=== PATIENT | female | born 1940 | race Caucasian/White ===

== ENCOUNTER 2021-07-31 16:38 | Emergency (ER) | payer OTHER, SELFPAY ==
--- NOTE | ~2021-07-31 | CT_ITS ---
EXAMINATION: CT abdomen pelvis w con DATE: 07/31/2021 19:40 INDICATION: Nausea and vomiting for 3 weeks TECHNIQUE: Computed tomography (CT) of the abdomen and pelvis was performed with 100 cc Omnipaque 350 intravenous contrast. Automated exposure control and iterative reconstruction technique were employe d. Exam dose: 256.31 mGy-cm total exam DLP. COMPARISON: None. FINDINGS: The lung bases are clear. Normal heart size. No pericardial or pleural effusion. Small sliding hiatal hernia. There is a 10.5 mm hypoattenuating lesion of the upper posterior liver posterior to the inferior vena cava which may be a cyst or hemangioma. There is a huge up to 6.2 cm wide an 8 cm anteroposterior dimension hypoattenuating lesion of the low er aspect of the right hepatic lobe, with peripheral contrast enhancement. Additional satellite lesio ns measure up to 2 cm dimension are noted. The peripheral contrast-enhancement appears relatively con tinuous as opposed to puddling contrast enhancement expected with a giant hemangioma. Primary or meta static hepatic malignancy is favored. Consider hepatic MRI examination. No surface nodularity of liver is noted. Splenic size is normal. No pancreatic mass lesion, calcifica tion or ductal dilatation is detected. No bile duct dilatation. No gallbladder distention or gallbladder wall thickening is noted but there appear to be multiple sma ll stones at the dependent aspect of the gallbladder. There is some nonspecific thickening of the wall of the gastric antrum/pylorus. Normal morphology of the adrenal glands. 1.5 cm left renal cyst. No urinary tract calculus or hydroureteronephrosis. The urinary bladder is un remarkable. Status post hysterectomy. Diverticulosis of the colon; no CT evidence of diverticulitis. No bowel obstruction or intraperitonea l free air. There is atherosclerotic calcification but normal caliber of the abdominal aorta. No intraperitoneal or retroperitoneal or pelvic mass lesion or adenopathy or ascites. Moderate anterior wedge fracture deformities of L1 and L2. Grade 1 anterolisthesis at L4-5 due to degenerative change at the apophyseal joints. Old healed pelvic fracture deformities. IMPRESSION: Multiple hepatic masses; multifocal hepatocellular carcinoma and metastases are more lik lyn than giant hemangioma; consider hepatic MRI examination Cholelithiasis 1.5 cm left renal cyst Small sliding hiatal hernia Diverticulosis of the colon Reviewed, dictated and finalized at [facility]. Reviewed, dictated and finalized at [facility]. IMPRESSION: Multiple hepatic masses; multifocal hepatocellular carcinoma and m etastases are more likely than giant hemangioma; consider hepatic MRI examinati on Cholelithiasis 1.5 cm left renal cyst Small sliding hiatal hernia Diverticulosis of the colon
[2021-07-31 16:41] VITALS: BP 152/71; PULSE 91; RESP 16; TEMP 36.1; O2SAT 100
[2021-07-31 16:59] LABS: Basophils Percent Auto 0.1 % (0.2-1.2); Hematocrit 35.5 % (37.0-47.0); Hemoglobin 11.8 g/dL (12.0-15.0); Immature Granulocyte Absolute 0.04 K/mm3 (0.00-0.031); Immature Granulocyte Percent A 0.5 % (0-0.5); Lymphocytes Absolute Auto 1.09 K/mm3 (0.9-3.2); Lymphocytes Percent Auto 12.6 % (18.3-44.2); Mean Corpuscular HGB Conc 33.2 g/dl (32-36); Mean Corpuscular Hemoglobin 30.3 pg (26-34); Mean Platelet Volume 10.7 fl (7.4-10.4); Monocytes Absolute Auto 0.7 K/mm3 (0.1-0.6); Neutrophils Absolute Auto 6.8 K/mm3 (1.3-6.7); Neutrophils Percent Auto 78.8 % (45.5-73.1); Platelet Count Result 243 k/mm3 (150-375); Red Cell Distribution Width 12.1 % (11.5-14.5); White Blood Count 8.7 K/mm3 (4.5-10.0)
[2021-07-31 17:15] LABS: Alanine Aminotransferase 25 U/L (4-35); Albumin Level 4.1 g/dL (3.5-5.1); Alkaline Phosphatase 227 U/L (38-126); Anion Gap 10 mmol/L (8-16); Aspartate Amino Transferase 40 U/L (14-36); Bilirubin,Total 0.6 mg/dL (0.2-1.3); Blood Urea Nitrogen 11 mg/dL (7-17); Calcium 9.9 mg/dL (8.4-10.2); Carbon Dioxide 26 mmol/L (22-30); Chloride 93 mmol/L (98-107); Estimated CRCL calculation 40 ml/min; Estimated Glomerular Filt Rate > 60; Glucose 103 mg/dL (65-110); Lipase 163 U/L (23-300); Potassium 4.2 mmol/L (3.4-5.0); Sodium 129 mmol/L (137-145)
--- NOTE | 2021-07-31 19:17 | ED.GENADULT ---
HPI - General Adult General Chief complaint: Nausea/Vomiting/Diarrhea Stated complaint: Vomiting x3 weeks Time Seen by Provider: 07/31/21 18:44 Source: patient Mode of arrival: ambulatory Limitations: no limitations History of Present Illness HPI narrative: Patient presents for evaluation of nausea and vomiting for the last 2 to 3 weeks. She states that episodes of vomiting occur immediately after eating. She indicates her symptoms started approximately 1 week after receiving her influenza vaccination and COVID booster. No recent travel, new foods, recent antibiotic use. She denies any abdominal pain whatsoever. She has experienced chills and chills without objective fever. Last bowel movement was today, solid in consistency, without the presence of blood or mucus. She has had decreased volume with her bowel movements since decreasing her oral intake. She reports chronic nocturia, unchanged. Over the last few days she has only been drinking water, as nothing else will stay down. Surgical history positive for hysterectomy. No other abdominal surgeries historically. Related Data Allergies Allergy/AdvReac Type Severity Reaction Status Date / Time Sulfa (Sulfonamide Allergy Mild Rash Verified 07/31/21 19:18 Antibiotics) Review of Systems Review of Systems: CONSTITUTIONAL: Denies fever, chills, or sweats. EYES: Denies visual changes, redness, or discharge. ENT: Denies rhinorrhea, congestion, sore throat, or otalgia. CARDIOVASCULAR: Denies chest pain, palpitations, or edema. RESPIRATORY: Denies cough or dyspnea. GASTROINTESTINAL: Reports nausea and vomiting. Denies abdominal pain. GENITOURINARY: Denies dysuria or hematuria. SKIN: Denies rash or itching. MUSCULOSKELETAL: Denies back pain, joint pain, or myalgia. NEUROLOGIC: Denies headache, numbness, dizziness, or weakness. PSYCHIATRIC: Denies anxiety or depression. [facility] Past Medical History Medical History (Updated 07/31/21 @ 21:59 by GAEL Vuong, LIV) Depression Hyperlipidemia Hypertension Vitamin D deficiency Surgical History Surgical History History of total hysterectomy Family History Family History Father Hypertension Social History Social History Substance use: never Living arrangements: with family Gender identity (if verbalized by the patient): Female Sexual Orientation (if Verbalized by the Patient): Straight or Heterosexual Spiritual care concerns: No Exam Narrative: GENERAL: Well-appearing, well-nourished, and in no acute distress. HEAD: Normocephalic, atraumatic. EYES: PERRLA and EOMI. ENT: Nares clear, no rhinorrhea or epistaxis. Mucous membranes moist. Oropharynx without tonsillar hypertrophy exudate or other lesions. Bilateral TMs pearly mukherjee nonbulging NECK: Supple. No adenopathy or masses. No carotid bruits or JVD CHEST: Clear to auscultation. No respiratory distress. No wheezes rales or rhonchi HEART: Regular rate and rhythm. No murmur heard. Normal peripheral pulses. ABDOMEN: Soft, nontender, nondistended, normal active bowel sounds. EXTREMITIES: Normal range of motion. No edema. SKIN: Warm, dry, no rash. NEURO: No focal deficits. Alert and oriented x3. PSYCH: Normal mood and affect. Course Course Emergency Course: This is an 81-year-old female who presented with complaints of nausea and vomiting. CT abdomen pelvis was performed and showed multiple hepatic masses; multifocal hepatocellular carcinoma and metastases are more likely than giant hemangioma; Cholelithiasis, 1.5 cm left renal cyst, small sliding hiatal hernia, diverticulosis of the colon. Reviewed these findings with patient. She states she is a DNR. She states she does not want any further intervention. Her nausea is controlled. I contacted her primary care provider,
[2021-07-31] MEDS: SODIUM CHLORIDE 0.9% IV 1,000 ML 999 ML IV CONT (19:19)
[2021-07-31] MEDS: ONDANSETRON INJ 4 MG/2 ML VIAL IV PUSH (19:21)
[2021-07-31 19:22] VITALS: BP 148/72; PULSE 76; RESP 16; O2SAT 97
[2021-07-31] MEDS: FAMOTIDINE 20 MG/2 ML VIAL IV PUSH (19:22)
[2021-07-31 20:14] LABS: Add Urine Microscopic? YES; Appearance Urine Cloudy (Clear); Bacteria Urine Trace /hpf; Bilirubin Urine Negative (Negative); Blood Urine 1+ (Negative); Color Urine Amber (Yellow); Glucose Urine UA Negative (Negative); Ketones Urine 1+ mg/dL (Negative); Leukocyte Esterase Ur 2+ LEU/UL (Negative); Mucus Urine Heavy /lpf; Nitrate Urine Positive (Negative); Protein Urine 2+ mg/dL (Negative); Specific Grav Ur 1.023 (1.001-1.035); Squamous Epithelial Cell Urine Moderate /hpf (Few); Urobilinogen Urine Negative mg/dL (<2.0); WBC Clumps Urine Present /HPF; WBC Urine >75 /hpf
[2021-07-31 21:08] LABS: Troponin I < 0.012 ng/mL (0.000-0.034)
[2021-07-31 22:55] VITALS: BP 170/77; PULSE 87; RESP 16; O2SAT 99
== END 2021-07-31 22:31 | disposition home or self-care (01) ==
PROVIDERS: General Practice; Emergency Provider Nurse Practitioner
DX: N39.0 Urinary tract infection, site not specified (principal); R11.2 Nausea with vomiting, unspecified; K76.9 Liver disease, unspecified; E78.5 Hyperlipidemia, unspecified; I10 Essential (primary) hypertension; E55.9 Vitamin D deficiency, unspecified; N28.1 Cyst of kidney, acquired; K44.9 Diaphragmatic hernia without obstruction or gangrene; K57.90 Diverticulosis of intestine, part unspecified, without perforation or abscess without bleeding; K80.20 Calculus of gallbladder without cholecystitis without obstruction
CPT/HCPCS: 36415; 74177; 80053; 81001; 83690; 84484; 85025; 87077; 87086; 87186; 96361; 96374; 96375; 99284; J2405; J7030; Q9967